=== PATIENT | male | born 1930 | race Caucasian/White ===

== ENCOUNTER 2017-11-24 20:43 | Inpatient (IN) | payer MEDICARE ==
[~2017-11-24] VITALS: Ht 180.3 cm; Wt 74.8 kg
--- OUTSIDE RECORDS SUMMARY | ~2017-11-24 | XMS | Clinical Summary ---
Demographics + + + | Address | [address] | | | [place] [address] | + + + | Home Phone | | + + + | Preferred Language | Unknown | + + + | Marital Status | | + + + | Denominational Affiliation | Unknown | + + + | Race | Unknown | + + + | Ethnic Group | Unknown | + + + Author + + + | Author | [facility] | | | and [place] | + + + | Organization | [facility] | | | and [place] | + + + | Address | Unknown | + + + | Phone | Unavailable | + + + Support + + +---------+ + | Name | Relationship | Address | Phone | + + +---------+ + | Leena Aggarwal | ECON | Unknown | | + + +---------+ + | Prakash Smith | ECON | Unknown | | + + +---------+ + Care Team Providers + +------+ + | Care Still Operator Brandy Name | Role | Phone | + +------+ + | Ishan Patricia MD | PP | | + +------+ + Allergies No Known Allergies Current Medications + + +-------+---------+------+------+-------+ | Prescription | Sig. | Disp. | Refills | Star | End | Statu | | | | | | t | Date | s | | | | | | Date | | | + + +-------+---------+------+------+-------+ | tiotropium | Inhale 18 mcg into | | | 09/1 | | Activ | | (SPIRIVA HANDIHALER) | the lungs Daily. | | | 2/20 | | e | | 18 mcg inhalation | | | | 12 | | | | capsule | | | | | | | + + +-------+---------+------+------+-------+ | | 1 puff inhaled twice | | | 04/10 | | Activ | | fluticasone-salmeter | daily | | | 2/20 | | e | | ol (ADVAIR DISKUS) | | | | 12 | | | | 250-50 mcg/puff | | | | | | | | diskus inhaler | | | | | | | + + +-------+---------+------+------+-------+ | | use in nebulizer | | | 09/1 | | Activ | | albuterol-ipratropiu | every 4 hours as | | | 2/20 | | e | | m (DUONEB) 2.5-0.5 | needed for shortness | | | 12 | | | | mg/3 mL SOLN | of breath | | | | | | + + +-------+---------+------+------+-------+ | | 2 puffs inhaled | | | 04/10 | | Activ | | albuterol-ipratropiu | every 4 hours as | | | 2/20 | | e | | m (COMBIVENT) 103-18 | needed for shortness | | | 12 | | | | mcg/puff inhaler | of breath | | | | | | + + +-------+---------+------+------+-------+ | atorvaSTATin | Take 10 mg by mouth | | | 04/10 | | Activ | | (LIPITOR) 10 mg | Daily. | | | 20 | | e | | tablet | | | | 12 | | | + + +-------+---------+------+------+-------+ | tocopherol (EQL | Take 400 Units by | | | 04/10 | | Activ | | VITAMIN E) 400 units | mouth Daily. | | | 220 | | e | | capsule | | | | 12 | | | + + +-------+---------+------+------+-------+ | ascorbic acid ([facility]S | Take 1,000 mg by | | | 04/10 | | Activ | | VITAMIN C) 1000 MG | mouth Daily. | | | 2/20 | | e | | tablet | | | | 12 | | | + + +-------+---------+------+------+-------+ | Travoprost | 1 drop in each eye | | | 04/10 | | Activ | | (TRAVATAN Z OP) | at bedtime | | | 2/20 | | e | | | | | | 12 | | | + + +-------+---------+------+------+-------+ | multivitamin | 1 tablet by mouth | | | 04/10 | | Activ | | (THERAGRAN) per | daily | | | 2/20 | | e | | tablet | | | | 12 | | | + + +-------+---------+------+------+-------+ | CALCIUM PO | TABS 1 tablet by | | | 04/10 | | Activ | | | mouth daily | | | 2/20 | | e | | | | | | 12 | | | + + +-------+---------+------+------+-------+ | CVS MAGNESIUM PO | TABS 1 tablet by | | | 04/10 | | Activ | | | mouth daily | | | 2/20 | | e | | | | | | 12 | | | + + +-------+---------+------+------+-------+ | aspirin (ADULT | 81 mg by mouth | | | 04/10 | | Activ | | ASPIRIN EC LOW | alternating with | | | 220 | | e | | STRENGTH) 81 MG EC | 325mg daily | | | 12 | | | | tablet | | | | | | | + + +-------+---------+------+------+-------+ | Flaxseed, Linseed, | CAPS 1 capsule by | | | 04/10 | | Activ | | (FLAXSEED OIL PO) | mouth daily | | | 2/20 | | e | | | | | | 12 | | | + + +-------+---------+------+------+-------+ | Coenzyme Q10 | CAPS 1 capsule by | | | 04/10 | | Activ | | (COQ-10 PO) | mouth daily | | | 2/20 | | e | | | | | | 12 | | | + + +-------+---------+------+------+-------+ Active Problems + + + | Problem | Noted Date | + + + | HYPOXEMIA | | + + + | Pulmonary emphysema (HCC) | | + + + + + | Overview: TORIE [id number] Decision | + + Immunizations + + + + | Name | Dates Previously Given | Next Due | + + + + | INFLUENZA PF | 05/31/2012, 06/02/2009, 07/10/2008 | | | TRIVALENT(PED/ADOL/A | | | | DEAN)MERRY | | | + + + + Social History + +-------+ +--------+------+ | Tobacco Use | Types | Packs/Day | Years | Date | | | | | Used | | + +-------+ +--------+------+ | Never Assessed | | | | | + +-------+ +--------+------+ + + + | Sex Assigned at | Date Recorded | | | | + + + | Not on file | | + + + Last Filed Vital Signs + + + + | Vital Sign | Reading | Time Taken | + + + + | Blood Pressure | 130/70 | 03/03/2016843 PDT | + + + + | Pulse | 91 | 03/03/2016843 PDT | + + + + | Temperature | - | - | + + + + | Respiratory Rate | 16 | 03/03/2016843 PDT | + + + + | Oxygen Saturation | 94% | 03/03/2016843 PDT | + + + + | Inhaled Oxygen | - | - | | Concentration | | | + + + + | Weight | 79.3 kg (174 lb 13.2 | 03/03/2016843 PDT | | | oz) | | + + + + | Height | 180.3 cm (5' 11") | 03/03/2016843 PDT | + + + + | Body Mass Index | 24.38 | 03/03/2016843 PDT | + + + + Plan of Treatment + + + + + | Health Maintenance | Due Date | Last Done | Comments | + + + + + | Vaccine: | 11/21/195 | | | | Dtap/Tdap/Td (1 - | 0 | | | | Tdap) | | | | + + + + + | Vaccine: Zoster (#1) | | | | | | 1 | | | + + + + + | Vaccine: | | | | | Pneumococcal 65+ | 6 | | | | Low/Medium Risk (1 | | | | | of 2 - PCV13) | | | | + + + + + | Vaccine: Influenza | | 05/31/2012, 06/02/2009, | | | (Season Ended) | 8 | 07/10/2008 | | + + + + + Results Not on filefrom Last 3 Months
--- OUTSIDE RECORDS SUMMARY | ~2017-11-24 | XMS | Clinical Summary ---
Demographics + + + | Address | [address] | | | [place] [address] | + + + | Home Phone | | + + + | Preferred Language | Unknown | + + + | Marital Status | | + + + | Druze Affiliation | Unknown | + + + | Race | Unknown | + + + | Ethnic Group | Unknown | + + + Author + + + | Author | [facility] | | | and [place] | + + + | Organization | [facility] | | | and [place] [...] Team Providers + +------+ + | Care Storage And Backup Administrator Name | Role | Phone | + [...] + + + + | Overview: TORIE [id number] Decision | + + Immunizations + + [...]
--- OUTSIDE RECORDS SUMMARY | ~2017-11-24 | XMS | Clinical Summary ---
Demographics + + + | Address | [address] | | | [place] [address] | + + + | Home Phone | | + + + | Preferred Language | Unknown | + + + | Marital Status | | + + + | Anabaptist Affiliation | Unknown | + + + | Race | Unknown | + + + | Ethnic Group | Unknown | + + + Author + + + | Author | [facility] | | | and [place] | + + + | Organization | [facility] | | | and [place] [...] Team Providers + +------+ + | Care Cone Sewer Name | Role | Phone | + [...] + + + + | Overview: TORIE [id number] Decision | + + Immunizations + + [...]
[~2017-11-24 20:43] MED LIST: ASPIRIN EC81 MG PO; CEFUROXIME500 MG PO; CO Q-10400 MG PO; GLUCOSAMINE CH1 EACH PO; GUAIATUSSIN AC10 ML PO; IPRAT-ALBUT 0.5-3 ML INH; LEVAQUIN500 MG PO; LIPITOR20 MG PO; MAG-OXIDE400 MG PO; MULTI VITAMIN1 EACH PO; OMEPRAZOLE20 MG PO; PREDNISONE20 MG PO; PRESERVISION A1 EACH PO; PROVENTIL HFA6.7 GM INH; SIMVASTATIN20 MG PO; SYMBICORT 16010.2 GM INH; TRAVOPROST 0.02.5 ML OU; VITAMIN B12-FO1 EACH PO; VITAMIN C500 M1 PO
--- NOTE | 2017-11-25 00:09 | NUR ---
ADMIT TO CCU FROM ED. MOVED SLEF FROM STRETCHER TO BED. SATS DEC TO LOW 80'S WITH THIS. DID RECOVER WITH IN MINUTES, NO REAL INC IN SOB. ABLE TO SPEAK IN FULL SENTENCES. BREATH TONES ARE TIGHT, DIM THROUGHOUT. WITH PT AND SHE WILL TAKE CLOTHES HOME WITH HER. PT INSTRUCTED NOT TO GET UP WITHOUT CALLING. GIVEN CALL LIGHT.
--- NOTE | 2017-11-25 02:28 | NUR ---
AWAKENED FOR MEDS, NOC/O. DENEIES NEED TO VOID.
--- NOTE | 2017-11-25 03:41 | NUR ---
CONVERTED TO SR AT ABOUT 0320. IS SLEEPING.
--- NOTE | 2017-11-25 04:15 | NUR ---
AWAKENS EASILY FOR ASSESSMENT AND NEB TX. BREATH TONES HAVE INCREASED AIR EXCHNAGE. STATES DOES NOT NEED TO VOID YET BUT WILL THINK ABOUT IT.
--- NOTE | 2017-11-25 05:06 | NUR ---
DR REYES CALLED RE PT'S NOT VOIDING. ORDER TO GIVEN 1L LR RECEIVED.
--- NOTE | 2017-11-25 06:12 | NUR ---
AWAKE, DENIES NEED TO VOID. BLADDER SCANNED FRO 490ML. REMAINS SR WITH FREQ PAC'S
--- NOTE | 2017-11-25 06:31 | NUR ---
AWAKE, STATES HAVING A LOT OF GAS AND WONDERING IF THAT WAS NORMAL.
--- NOTE | 2017-11-25 08:08 | NUR ---
PT AWAKE, WATCHING TV. ASSESSMENT COMPLETED - PT DENIES C/O AT THIS TIME. R.T. HERE AND NEB TX GIVEN. PT SAT ON EDGE OF BED TO EAT BREAKFAST AND TAKE A.M. MEDS. 02 REMAINS ON AT 4L PER NC HUMIDIFIED.
--- NOTE | 2017-11-25 08:42 | NUR ---
PT ATE APPROX 95% OF BREAKFAST. PT UP TO [facility] WITH ASSIST AND VOIDED 50 MLS YELLOW URINE BUT UNABLE TO HAVE BM AT THIS TIME. PT RETURNED TO BED AND ULTRA SOUND TECH HERE FOR 2D ECHO.
--- NOTE | 2017-11-25 09:43 | NUR ---
ECHO COMPLETED. PT STATES NO NEED TO VOID AT THIS TIME. BLADDER SCAN SHOWS 669 MLS OF URINE IN BLADDER. PT STOOD AND VOIDED APPROX [address] REYES NOTIFIED.
--- NOTE | 2017-11-25 11:16 | NUR ---
REPORT GIVEN TO EAN Ceballos ON MED/SURG. PT TRANSFERRED TO ROOM 116 VIA BED ON TELE #1.
--- NOTE | 2017-11-25 11:45 | NUR ---
REPORT RECEIVED FROM MAXIMILIAN APONTE. PT TRANSFERRED FROM CCU AND GOT TO FLOOR APPX. 1130. VS STABLE. O2 BETWEEN 89-93% ON 4L. CHRONIC HOME 02 3-3.5L. PT HAS HAD POOR UOP IN CCU. STATED THEY NORMALLY GO EVERY 15-20 MINUTES AT HOME, BUT HAVE LOW VOLUME. DESCRIBED WARM DULL FEELING THAT OCCURS WHEN THEY USE THE BATHROOM. LUNGS CLEAR BUT DIM. TELE #1, IRREGULAR RHYTHM. PT IS AO X4. ORDERED LUNCH. DEBBI AT BEDSIDE. DENIES OTHER NEEDS AT THIS TIME.
--- NOTE | 2017-11-25 11:50 | NUR ---
PATIENT SITTING UP AND RESTING IN BED. PATIENTS FAMILY MEMBER IN ROOM. RN IN ROOM. CALL LIGHT WITHIN REACH. NO OTHER NEEDS AT THIS TIME.
--- NOTE | 2017-11-25 13:19 | NUR ---
PATIENT SITTING UP IN BED WATCHING TV. FRESH ICE WATER. CALL LIGHT WITHIN REACH. NO OTHER NEEDS AT THIS TIME.
--- NOTE | 2017-11-25 15:00 | NUR ---
PATIENT SITTING UP IN BED. PATIENT FAMILY MEMBER IN ROOM. CALL LIGHT WITHIN REACH. NO OTHER NEEDS AT THIS TIME.
[2017-11-25] MEDS ORDERED: XALATAN2.5 ML OU (15:05)
--- NOTE | 2017-11-25 15:33 | NUR ---
DR REYES IN TO SEE PT. EYE DROPS FROM HOME GIVEN TO MAXIMILIAN MCKOY. ALREADY DISCUSSED WITH SAWYER. NEW BAG OF LR HUNG. PT UP TO BATHROOM. STEADY GAIT. SBA. DEBBI AT BEDSIDE.
--- NOTE | 2017-11-25 16:07 | NUR ---
PATIENT SITTING UP IN BED. PHARMACY IN ROOM. NO OTHER NEEDS AT THIS TIME.
[2017-11-25] MEDS ORDERED: LUBRICANT DRY E15 ML OU (16:29)
--- NOTE | 2017-11-25 16:56 | NUR ---
Patient's medication reconciliation in progress. Need to verify simvastatin dose. Patient's own medication, latanoprost, is in [facility] cubby. Patient has additional eye drops, will bring in for pharmacy to verify. Awaiting prescription records from [place]
--- NOTE | 2017-11-25 17:22 | NUR ---
PT TRANSFERED FROM CCU THIS MORNING. VS STABLE. TELE #1. HR 80-95, IRREGULAR RHYTHM. LUNGS HAVE BEEN CLEAR, DIM IN BASES. O2 IS 89-93% ON 4L. PT HAD POOR URINE OUTPUT IN CCU. URINE OUTPUT HAS BEEN LOW BUT INCREASING. PT HAS SMALL APPETITIE BUT OTHERWISE GOOD ORAL INTAKE. SBA. NO ASSISTIVE DEVICES AT HOME. DEBBI AT BEDSIDE MOST OF DAY.
--- NOTE | 2017-11-25 17:43 | EKG ---
[facility] [address] [facility] [place] [address] Signed Atrial fibrillation Rightward axis Septal infarct (cited on or before 24-NOV-2017) Abnormal ECG When compared with ECG of 24-NOV-2017 20:51, (Unconfirmed) Current undetermined rhythm precludes rhythm comparison, needs review T wave inversion now evident in Inferior leads Confirmed by SIRI REYES MD ([id number]) on 11/25/2017 5:43:17 PM Electronically Signed By: SIRI REYES MD 11/25/17 1743 PATIENT NAME: REID NIXON Electrocardiogram DATE OF : 32 PHYSICIAN: SIRI REYES MD REPORT #: [id number] REPORT IS CONFIDENTIAL AND NOT TO BE RELEASED WITHOUT AUTHORIZATION
--- NOTE | 2017-11-25 17:43 | EKG ---
[facility] [address] [facility] [place] [address] Signed Atrial fibrillation with rapid ventricular response with premature ventricular or aberrantly conducted complexes Rightward axis Septal infarct (cited on or before 24-NOV-2017) Abnormal ECG When compared with ECG of 24-NOV-2017 22:37, (Unconfirmed) Previous ECG has undetermined rhythm, needs review Confirmed by SIRI REYES MD ([id number]) on 11/25/2017 5:43:27 PM Electronically Signed By: SIRI REYES MD 11/25/17 1743 PATIENT NAME: REID NIXON Electrocardiogram DATE OF : 32 PHYSICIAN: SIRI REYES MD REPORT #: [id number] REPORT IS CONFIDENTIAL AND NOT TO BE RELEASED WITHOUT AUTHORIZATION
--- NOTE | 2017-11-25 18:07 | NUR ---
THIS RECREATION THERAPY AIDE ASSISTED PATIENT FROM BED TO CHAIR. 1 PERSON SBA. PATIENT IS NOW SITTING UP IN CHAIR WATCHING TV. CALL LIGHT WITHIN REACH. NO OTHER NEEDS AT THIS TIME.
--- NOTE | 2017-11-25 19:15 | NUR ---
BEDSIDE REPORT RECEIVED FROM SN WOODS, PT AWAKE, UP IN CHAIR ON 4L OXYGEN BY NC, IVF INFUSING WNL RIGHT AC. PT ON TELE 1 IN AFIB, HR 85-90. NEXT TO PT. PT USING IS INSTRUCTED AT THIS TIME. CALL LIGHT IN LAP. NO REQUESTS AT THIS TIME.
--- NOTE | 2017-11-25 21:40 | NUR ---
PT ASSESSMENT COMPLETE. PT DENIES ANY PAIN. LUNGS CLEAR, DIMINISHED THROUGHOUT ALL LOBES. HR IRREGULAR RHYTHM. CSM INTACT BUE, BLE. BOWEL TONES ACTIVE X 4. IVF INFUSING WNL, GOOD BLOOD RETURN. PT IS ALERT AND ORIENTED X 4. FRESH ICE WATER GIVEN. NO ADDL REQUESTS. CALL LIGHT IN REACH, LIGHTS OFF IN ROOM.
--- NOTE | 2017-11-25 23:45 | NUR ---
CHECKED ON PT, PT AWAKE, LYING IN BED. STATES "CAN'T SLEEP". PT REFUSES EAR PLUGS, NOISE MACHINE. WATCHING TV AT THIS TIME. JELLO GIVEN TO PT REQUESTED. NO ADDL REQUESTS. LIGHTS OFF IN ROOM.
--- NOTE | 2017-11-26 02:30 | NUR ---
PT ASSESSMENT COMPLETE. PT C/O ILLUSIONS IN ROOM "[place], PEOPLE PLAYING CARDS AND MICE RUNNING IN BETWEEN THEM AND ACROSS THE BED". PT FRUSTRATED WITH INABILITY TO SLEEP. TITRATED OXYGEN TO 3.5 L AT THIS TIME, PT SATURATIONS MAINTAINED AT 94%. LUNGS DIMINISHED AND CLEAR THROUGHOUT, COURSENESS NOTED IN RLL. HR IRREGULAR. PT DENIES ANY PAIN. IVF INFUSING WNL. CALL LIGHT IN REACH.
--- NOTE | 2017-11-26 02:45 | NUR ---
DR. REYES NOTIFIED PT REPORTS HAVING ILLUSIONS IN ROOM, NOT ABLE TO SLEEP. TELEPHONE ORDER FOR 1 MG PO MELATONIN NOW. ORDER READ BACK, FAXED TO TELE PHARMACY.
--- NOTE | 2017-11-26 03:20 | NUR ---
IN PT ROOM TO ADMINISTER MELATONIN, ICE WATER PROVIDED TO PT. PT ON 3.5 L OXYGEN. LIGHTS OFF IN ROOM, IVF INFUSING. CALL LIGHT IN REACH, NO ADDL. REQUESTS AT THIS TIME.
--- NOTE | 2017-11-26 05:03 | NUR ---
CHECKED ON PT, PT LYING IN BED, AWAKE, ALERT. STATES HE HAS NOT SLEPT. URINAL EMPTIED 100 MLS CONCENTRATED URINE. JOYCE NAPIER IN PT ROOM TO BLADDER SCAN PT.
--- NOTE | 2017-11-26 05:44 | NUR ---
PT HAS HAD MINIMAL SLEEP THROUGHOUT SHIFT, C/O ILLUSIONS IN ACCOUNTING MANAGER ASSISTANT CONTROLLER HOURS, PO MELATONIN ADMINISTERED. IVF INFUSING WNL THORUGHOUT SHIFT. PT ON 3.5 L OXYGEN, SATURATIONS WNL. PT CONTINUES TO HAVE SMALL VOIDS. SBA. PT ALERT AND ORIENTED X 4. ON TELE 1, IRREGULAR HR.
--- NOTE | 2017-11-26 06:06 | NUR ---
PT APPEARS TO BE SLEEPING UPON ENTERING ROOM, AWAKENS TO RN AND CAT AND DOG BATHER IN ROOM. IV SOLUMEDROL ADMINISTERED, IV WNL, GOOD BLOOD RETURN. VITALS COMPLETE AT THIS TIME. SBA TO RESTROOM FOR 100 ML VOID, BLADDER SCANNED RESIDUAL 380. PT BACK IN BED, IVF INFUSING WNL. CALL LIGHT IN REACH.
--- NOTE | 2017-11-26 08:10 | NUR ---
BROUGHT HIM ANOTHER CUP OF COFFEE. ALSO ASKED HIM IF HE WOULD LIKE TO TAKE A SHOWER AND HE SAID IT DEPENDS ON IF HE GETS TO GO HOME TODAY.
--- NOTE | 2017-11-26 08:35 | NUR ---
PATIENT RESTING IN BED, ATE 80% OF FOOD, COMPLAINTS OF LOW QUALITY. HAS OTHER COMPLAINTS OF ONLY BEING ABLE TO SLEEP 20 MINUTES SINCE THIS LAST THURSDAY. PATIENT REPORTS NO COMPLAINTS OF PAIN. VOIDING WELL, IV FLUIDS INFUSING @75ML/HR. LUNG SOUNDS COURSE THROUGHOUT, 3.5 L NC. PATIENT REQUESTED TO KNOW IF GOING HOME THIS EVENING OR IF HE WOULD HAVE TO STAY ANOTHER NIGHT? FARRAH DE LA PAZ WITH DR. REYES. DISCUSSED NEW MEDICAITONS, PROVIDED HANDOUT.
--- NOTE | 2017-11-26 11:55 | NUR ---
PT IN BED, ALERT AND ORIENTED. JUST FINISHED UP A PHONE CALL I ENTERED HIS RM. HE WELCOMED ME AND SEEMED COMFORTABLE WITH MY PRESENCE. HE MENTIONED THAT HE WASN'T VERY HAPPY BECAUSED HE WAS EXHAUSTED-"I JUST CAN'T SLEEP". HE HAD THE TV ON NEWS CHANNEL, AND I MENTIONED THE MUSIC CHANNEL-HE SEEMED INTERESTED AND WE HAD A PLEASANT VISIT. TOLD ME A LITTLE ABOUT HIMSELF, AND RECEIVED A CALL FROM HIS DAUGHTER IN TRANSIT HERE. HE HANDED ME THE PHONE, WANTED ME TO PROVE HE ACTUALLY WAS TALKING WITH A RESPIRATORY COORDINATOR TO HER. SHE SEEMED PLEASANTLY SURPRISED. HE THEN RECEIVED ANOTHER CALL, I EXCUSED MYSELF, WILL CONTINUE TO FOLLOW NEEDED
[2017-11-26] MEDS ORDERED: SIMBRINZA 1%-0.28 ML OU (12:00)
[2017-11-26] MEDS ORDERED: FLAXSEED340 GM PO (12:00)
[2017-11-26] MEDS ORDERED: FLUOXETINE HCL20 MG PO (12:02)
[2017-11-26] MEDS ORDERED: BONIVA150 MG PO (12:02)
[2017-11-26] MEDS ORDERED: MSM1000 M1 PO (12:03)
--- NOTE | 2017-11-26 12:30 | NUR ---
MED REC COMPLETE
[2017-11-26] MEDS ORDERED: CEFUROXIME500 MG PO (12:41)
[2017-11-26] MEDS ORDERED: TAMSULOSIN HCL0.4 MG PO (12:42)
[2017-11-26] MEDS ORDERED: ELIQUIS5 MG PO (12:42)
[2017-11-26] MEDS ORDERED: SIMVASTATIN20 MG PO (12:42)
[2017-11-26] MEDS ORDERED: DILTIAZEM ER180 MG PO (12:43)
[2017-11-26] MEDS ORDERED: PREDNISONE20 MG PO (12:45)
--- NOTE | 2017-11-26 13:52 | NUR ---
PLAN FOR PATIENT TO DISCHARGE HOME, PATIENT REQUESTED SHOWER. ASSISTANCE PROVIDED. NOW WAITING TO FILL SOME OF PATIENT'S MEDS [facility] CALL LIGHT IN HAND, PATIENT DRESSED. DISCHARGE PENDING.
== END 2017-11-26 15:30 | disposition home or self-care (01) | DRG 189 ==
LOC: ED 20:43 → CCU 22:57 → MS 11-25 11:15
PROVIDERS: ADMIT Internal Medicine
DX: J96.21 Acute and chronic respiratory failure with hypoxia (principal); J44.1 Chronic obstructive pulmonary disease with (acute) exacerbation; J44.0 Chronic obstructive pulmonary disease with (acute) lower respiratory infection; J22 Unspecified acute lower respiratory infection; I48.0 Paroxysmal atrial fibrillation; E78.5 Hyperlipidemia, unspecified; H40.10X0 Unspecified open-angle glaucoma, stage unspecified; N40.1 Benign prostatic hyperplasia with lower urinary tract symptoms; R39.14 Feeling of incomplete bladder emptying; Z66 Do not resuscitate; Z99.81 Dependence on supplemental oxygen; Z87.891 Personal history of nicotine dependence; Z79.82 Long term (current) use of aspirin; Z79.51 Long term (current) use of inhaled steroids; Z79.899 Other long term (current) drug therapy
CPT/HCPCS: 36415; 71045; 80048; 80053; 83735; 83880; 84484; 85025; 85610; 87502; 93005; 93010; 93306; 94640; 94667; 94668; J0696; J1650; J2930; J7120

== ENCOUNTER 2018-01-02 06:43 | Emergency (ER) | payer MEDICARE ==
[~2018-01-02] VITALS: Ht 180.3 cm; Wt 74.8 kg
[~2018-01-02 06:43] MED LIST changes: +BONIVA150 MG PO; +DILTIAZEM ER180 MG PO; +ELIQUIS5 MG PO; +FLAXSEED340 GM PO; +FLUOXETINE HCL20 MG PO; +LUBRICANT DRY E15 ML OU; +MSM1000 M1 PO; +SIMBRINZA 1%-0.28 ML OU; +TAMSULOSIN HCL0.4 MG PO; +XALATAN2.5 ML OU
[2018-01-02] MEDS ORDERED: PREDNISONE20 MG PO (09:52)
--- NOTE | 2018-01-02 18:14 | EKG ---
[facility] [address] [facility] [place] [address] Signed Sinus rhythm with premature supraventricular complexes Left axis deviation Low voltage QRS Abnormal ECG When compared with ECG of 24-NOV-2017 22:38, Sinus rhythm has replaced Atrial fibrillation QRS axis shifted left Criteria for Septal infarct are no longer present T wave inversion no longer evident in Inferior leads Nonspecific T wave abnormality no longer evident in Anterior leads Confirmed by ALAN DYSON MD ([id number]) on 01/02/2018 6:14:31 PM Electronically Signed By: ALAN DYSON MD 01/02/18 1814 PATIENT NAME: REID NIXON Electrocardiogram DATE OF : 32 PHYSICIAN: ALAN DYSON MD REPORT #: [id number] REPORT IS CONFIDENTIAL AND NOT TO BE RELEASED WITHOUT AUTHORIZATION
== END 2018-01-02 11:23 | disposition home or self-care (01) ==
LOC: ED 06:43
DX: J44.1 Chronic obstructive pulmonary disease with (acute) exacerbation (principal); E78.5 Hyperlipidemia, unspecified; Z87.891 Personal history of nicotine dependence; Z91.013 Allergy to seafood; Z79.899 Other long term (current) drug therapy
CPT/HCPCS: 71045; 71046; 80053; 83735; 83880; 84484; 85025; 93005; 93010; 94640; 99284

== ENCOUNTER 2018-02-21 19:34 | Emergency (ER) | payer MEDICARE ==
[~2018-02-21] VITALS: Ht 180.3 cm; Wt 74.8 kg
== END 2018-02-21 22:55 | disposition home or self-care (01) ==
LOC: ED 19:34
PROC: 0W3Q7ZZ Control Bleeding in Respiratory Tract, Via Natural or Artificial Opening (ICD-10-PCS; principal; 2018-02-21)
DX: R04.0 Epistaxis (principal); J44.9 Chronic obstructive pulmonary disease, unspecified; E78.5 Hyperlipidemia, unspecified; I48.91 Unspecified atrial fibrillation; Z91.013 Allergy to seafood; Z79.899 Other long term (current) drug therapy
CPT/HCPCS: 30901; 99283

== ENCOUNTER 2018-04-08 10:57 | Emergency (ER) | payer MEDICARE ==
[~2018-04-08] VITALS: Ht 180.3 cm; Wt 74.8 kg
[2018-04-08] MEDS ORDERED: NORCO 5-325 TA1 EACH PO (13:50)
== END 2018-04-08 14:04 | disposition home or self-care (01) ==
LOC: ED 10:57
DX: S20.211A Contusion of right front wall of thorax, initial encounter (principal); M79.89 Other specified soft tissue disorders; I48.91 Unspecified atrial fibrillation; Z79.01 Long term (current) use of anticoagulants; Z91.013 Allergy to seafood; Z79.899 Other long term (current) drug therapy; W18.30XA Fall on same level, unspecified, initial encounter; W22.8XXA Striking against or struck by other objects, initial encounter
CPT/HCPCS: 71101; 93971; 99284

== ENCOUNTER 2018-04-09 14:31 | Inpatient (IN) | payer MEDICARE ==
[~2018-04-09] VITALS: Ht 180.3 cm; Wt 70.8 kg
[~2018-04-09 14:31] MED LIST changes: +NORCO 5-325 TA1 EACH PO
--- NOTE | 2018-04-09 22:03 | EKG ---
[facility] [address] [facility] [place] [address] Signed Normal sinus rhythm with sinus arrhythmia Left axis deviation Right bundle branch block Abnormal ECG When compared with ECG of 02-JAN-2018 06:59, premature supraventricular complexes are no longer present Right bundle branch block is now present Confirmed by ALAN DYSON MD ([id number]) on 04/09/2018 10:03:18 PM Electronically Signed By: ALAN DYSON MD 04/09/18 2203 PATIENT NAME: REID NIXON ORA Electrocardiogram DATE OF : 32 PHYSICIAN: ALAN DYSON MD REPORT #: [id number] REPORT IS CONFIDENTIAL AND NOT TO BE RELEASED WITHOUT AUTHORIZATION
[2018-04-11] MEDS ORDERED: AZITHROMYCIN500 MG PO (08:58)
[2018-04-11] MEDS ORDERED: PREDNISONE20 MG PO (09:02)
== END 2018-04-11 11:55 | disposition home or self-care (01) | DRG 189 ==
LOC: ED 14:31 → CCU 17:12 → MS 04-10 22:37
PROVIDERS: ADMIT Internal Medicine
PROC: 5A09457 Assistance with Respiratory Ventilation, 24-96 Consecutive Hours, Continuous Positive Airway Pressure (ICD-10-PCS; principal; 2018-04-09)
DX: J96.22 Acute and chronic respiratory failure with hypercapnia (principal); J44.1 Chronic obstructive pulmonary disease with (acute) exacerbation; J96.21 Acute and chronic respiratory failure with hypoxia; I48.91 Unspecified atrial fibrillation; E78.00 Pure hypercholesterolemia, unspecified; E78.5 Hyperlipidemia, unspecified; Z85.22 Personal history of malignant neoplasm of nasal cavities, middle ear, and accessory sinuses
CPT/HCPCS: 36415; 36600; 71045; 80048; 80053; 81001; 82803; 83735; 83880; 84484; 85025; 93005; 93010; 94640; 94660; 96374; 99285; J0456; J0696; J1650; J1815; J2920

== ENCOUNTER 2018-04-11 15:40 | Emergency (ER) | payer MEDICARE ==
[~2018-04-11] VITALS: Ht 180.3 cm; Wt 70.8 kg
[~2018-04-11 15:40] MED LIST changes: +AZITHROMYCIN500 MG PO
== END 2018-04-11 17:50 | disposition home or self-care (01) ==
LOC: ED 15:40
DX: J44.9 Chronic obstructive pulmonary disease, unspecified (principal); R09.02 Hypoxemia; Z87.891 Personal history of nicotine dependence; Z91.013 Allergy to seafood; Z79.899 Other long term (current) drug therapy
CPT/HCPCS: 71045; 80048; 83605; 83880; 85025; 94640; 99285